=== PATIENT | male | born 1995 | race African-American/Black ===

== ENCOUNTER 2017-02-24 19:17 | Emergency (ER) | payer SELFPAY ==
[~2017-02-24] VITALS: Ht 185.4 cm; Wt 127.0 kg
[2017-02-24 19:21] VITALS: BP 156/100
[2017-02-24] MEDS ORDERED: DIPHTH,PERTUSS(ACELL),TET TOX 0.5 ML DISP.SYRIN. VAX IM ONE (20:00)
[2017-02-24] MEDS ORDERED: HYDROcodone/APAP 5/325MG 1 TAB TABLET PO ONE (20:00)
[2017-02-24] MEDS ORDERED: OXYMETAZOLINE 0.05% NASAL SPRAY 30ML BOTTLE. NS ONE (20:00)
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
[2017-02-24] MEDS ORDERED: HYDR-971 PO (20:18)
[2017-02-24] MEDS ORDERED: AMOX1TAB61 PO (20:18)
== END 2017-02-24 20:27 | disposition home or self-care (01) ==
LOC: ER 19:17
DX: S02.2XXB Fracture of nasal bones, initial encounter for open fracture (principal); Y04.0XXA Assault by unarmed brawl or fight, initial encounter; Y93.89 Activity, other specified; Y92.89 Other specified places as the place of occurrence of the external cause; Y99.8 Other external cause status
CPT/HCPCS: 70486; 90471; 90715; 99284-25

== ENCOUNTER 2018-07-01 17:18 | Emergency (ER) | payer OTHER ==
[~2018-07-01] VITALS: Ht 188 cm; Wt 113.4 kg
[~2018-07-01 17:18] MED LIST: AMOX1TAB61 PO; HYDR-3164 PO
[2018-07-01 19:03] VITALS: BP 163/99
--- NOTE | 2018-07-01 19:07 | PHYS DOC ---
Past Medical History Past Medical History: No Pertinent History Past Surgical History: No Surgical History Alcohol Use: None Drug Use: None Adult General Chief Complaint Chief Complaint: ANKLE PROBLEM HPI HPI Patient is a 23 year old male presents to the ED complaining of left ankle injury 2 hours ago. Patient states that he was at work today and he had to run from a dog and he stepped over a watson and twisted his left ankle. Describes the pain as sharp. Rates the pain as 7 out of 10. History of previous leg injury and hardware placement in the past. Denies head/neck injury, LOC, vision changes , inability to walk, nausea/vomiting, paresthesias or calf tenderness/swelling. Review of Systems Review of Systems Constitutional: Denies fever or chills [] Eyes: Denies change in visual acuity, redness, or eye pain [] HENT: Denies nasal congestion or sore throat [] Respiratory: Denies cough or shortness of breath [] Cardiovascular: No additional information not addressed in HPI [] GI: Denies abdominal pain, nausea, vomiting, bloody stools or diarrhea [] : Denies dysuria or hematuria [] Musculoskeletal: Complains of ankle pain. Denies back pain. Integument: Denies rash or skin lesions [] Neurologic: Denies headache, focal weakness or sensory changes [] All other systems were reviewed and found to be within normal limits, except as documented in this note. Allergies Allergies Allergies Coded Allergies Type Severity Reaction Last Updated Verified No Known Drug Allergies 02/24/17 No Physical Exam Physical Exam Constitutional: Well developed, well nourished, no acute distress, non-toxic appearance. [] HENT: Normocephalic, atraumatic Cardiovascular:Heart rate regular rhythm, no murmur [] Lungs & Thorax: Bilateral breath sounds clear to auscultation [] Skin: Warm, dry, no erythema, no rash. [] Back: No tenderness, no CVA tenderness. [] Extremities: mild left lateral ankle tenderness/swelling, no cyanosis, no clubbing, ROM intact, no edema. [] Neurologic: Alert and oriented X 3, normal motor function, normal sensory function, no focal deficits noted. [] Psychologic: Affect normal, judgement normal, mood normal. [] Current Patient Data Vital Signs Vital Signs Date Time Temp Pulse Resp B/P (MAP) Pulse Ox O2 Delivery O2 Flow Rate FiO2 4/15/19 19:03 98.1 92 16 163/99 (120) 98 Room Air 98.1 EKG EKG [] Radiology/Procedures Radiology/Procedures [] Course & Med Decision Making Course & Med Decision Making Pertinent Labs and Imaging studies reviewed. (See chart for details) []Attending physician read imaging. Discussed imaging findings with patient. Patient's pain improved in the ED. States he is feeling much better. Patient able to ambulate without assistance. Discussed follow-up with orthopedics if pain persists. Provided contact information/education. Discussed reasons to return to the ED. Patient understands and agrees with plan. Dragon Disclaimer Dragon Disclaimer This electronic medical record was generated, in whole or in part, using a voice recognition dictation system. Departure Departure Impression: Primary Impression: Ankle sprain Disposition: 01 HOME, SELF-CARE Condition: IMPROVED Referrals: NO PCP (PCP) SHERWIN ROJAS II, MD Patient Instructions: Ankle Sprain PINEDA DOTSON Jul 01, 2018 19:07
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
== END 2018-07-01 20:24 | disposition home or self-care (01) ==
LOC: ER 17:18
DX: S93.492A Sprain of other ligament of left ankle, initial encounter (principal); X50.1XXA Overexertion from prolonged static or awkward postures, initial encounter; Y93.02 Activity, running; Y92.89 Other specified places as the place of occurrence of the external cause; Y99.0 Civilian activity done for income or pay
CPT/HCPCS: 73610; 99284